=== PATIENT | male | born 1970 | race Caucasian/White ===

== ENCOUNTER 2024-07-27 22:37 | Emergency (ER) | payer OTHER ==
[~2024-07-27] VITALS: Ht 177.8 cm; Wt 104.4 kg
[2024-07-28] MEDS: OXYCODONE/APAP 5MG/325MG(HOME DOSE PACK) PO ONE (02:08)
[2024-07-28 02:23] VITALS: BP 136/75; TEMP 98.8; O2SAT 97
== END 2024-07-28 02:25 | disposition home or self-care (01) ==
LOC: M ED 22:37
DX: S82.832A Other fracture of upper and lower end of left fibula, initial encounter for closed fracture (principal); S92.355A Nondisplaced fracture of fifth metatarsal bone, left foot, initial encounter for closed fracture; Y92.830 Public park as the place of occurrence of the external cause; Y93.9 Activity, unspecified; Y99.9 Unspecified external cause status; V86.52XA Driver of snowmobile injured in nontraffic accident, initial encounter; K21.9 Gastro-esophageal reflux disease without esophagitis; F12.10 Cannabis abuse, uncomplicated